=== PATIENT | female | born 1990 | race Caucasian/White ===

== ENCOUNTER 2021-02-01 10:49 | Emergency (ER) | payer OTHER, SELFPAY ==
[2021-02-01 10:58] VITALS: BP 126/69; PULSE 95; RESP 16; TEMP 36.6; O2SAT 99
--- NOTE | 2021-02-01 11:12 | ED.URI ---
HPI - URI/Sore Throat General Chief Complaint: Upper Respiratory Infection Stated Complaint: sore throat, cough Time Seen by Provider: 02/01/21 11:09 Source: patient Mode of arrival: ambulatory Limitations: no limitations History of Present Illness HPI Narrative: Sue is a 31-year-old female patient who ambulated into the [facility]. Patient states she has a week long history of a sore throat, lymph node swelling,. Patient states she just started with a cough in the last 2 days. Patient states she has had strep in the past but has not had it recently. Related Data Allergies Allergy/AdvReac Type Severity Reaction Status Date / Time Penicillins Allergy Anaphylaxis Verified 02/01/21 11:13 hydrocodone AdvReac Nausea and Verified 02/01/21 11:13 Vomiting Review of Systems Review of Systems: CONSTITUTIONAL: Denies body aches, fever, chills, or sweats. EYES: Denies visual changes, redness, or discharge. ENT: Denies rhinorrhea, congestion, +sore throat, denies otalgia. CARDIOVASCULAR: Denies chest pain, palpitations, or edema. RESPIRATORY: +cough; denies dyspnea. GASTROINTESTINAL: Denies abdominal pain, nausea, vomiting, or diarrhea. GENITOURINARY: Denies dysuria or hematuria. SKIN: Denies rash, itching, or wounds. MUSCULOSKELETAL: Denies back pain, joint pain, or myalgia. NEUROLOGIC: Denies headache, numbness, tingling, or weakness. PSYCH: Denies depression or anxiety. All systems reviewed & are unremarkable except as noted in HPI and below PMFSH Comments At time of signature, I have reviewed and agree with nursing past medical, surgical, social and family history unless otherwise noted. Please see nursing chart for further information. There is no relevant family history pertinent to the presenting complaint Exam Narrative: GENERAL: Well-appearing, well-nourished, and in no acute distress. HEAD: Normocephalic, atraumatic. EYES: EOMI. No redness or drainage. Conjunctivae normal. ENT: Mucous membranes pink and moist. Nares clear. No rhinorrhea. TMs normal bilaterally. Posterior pharynx is erythemic with 4+ tonsils. No exudate is noted Uvula midline. NECK: Normal AROM. Supple. Bilateral anterior cervical lymphadenopathy. CHEST: No respiratory distress. Clear to auscultation. MUSCULOSKELETAL: No bony tenderness. EXTREMITIES: Normal range of motion. No edema. SKIN: Warm, dry, no rash. Capillary refill normal. Normal skin turgor. NEURO: No focal deficits. Alert and oriented x3. Gait steady. PSYCH: Normal affect. No signs of depression or anxiety. Course Vital Signs Vital signs: Vital Signs Temperature 36.6 C 02/01/21 10:58 Pulse Rate 95 02/01/21 10:58 Respiratory Rate 16 02/01/21 10:58 Blood Pressure 126/69 02/01/21 10:58 Pulse Oximetry 99 02/01/21 10:58 Temperature 36.6 C 02/01/21 10:58 Pulse Rate 95 02/01/21 10:58 Respiratory Rate 16 02/01/21 10:58 Blood Pressure 126/69 02/01/21 10:58 Pulse Oximetry 99 02/01/21 10:58 MDM - URI/Sore Throat MDM Narrative Medical decision making narrative: Rapid strep test is negative. Throat culture will be sent to lab. Patient will be treated with with prednisone. Patient follow her primary care physician in 3 to 5 days. Differential Diagnosis Differential diagnosis: Likely upper respiratory infection, otitis media, viral infection and pharyngitis Critical Care Time Critical Care Time Critical Care Time: No Discharge Plan Discharge Clinical Impression: Pharyngitis Qualifiers: Pharyngitis/tonsillitis etiology: unspecified etiology Qualified Code(s): J02.9 - Acute pharyngitis, unspecified Patient Disposition: Home, Self-Care Condition: Stable Instructions: Antibiotic Form, Pharyngitis (ED) Additional Instructions: Increase fluids. Use [id number] cough and cold medicines for fever, cough, and sore throat. Your rapid strep swab was negative today at [facility]. You will be notified in a few days
== END 2021-02-01 11:21 | disposition home or self-care (01) ==
PROVIDERS: Emergency Provider Nurse Practitioner Family
DX: J02.9 Acute pharyngitis, unspecified (principal)
CPT/HCPCS: 87081; 87880; 99203; G0463

== ENCOUNTER 2023-01-10 02:01 | Day surgery (SDC) | payer BC, SELFPAY ==
[2023-01-03 10:02] VITALS: BMI 31.7
--- NOTE | 2023-01-07 09:25 | SUR.PREOP ---
Patient called regarding upcoming procedure. Message left on patient's voicemail regarding preop instructions, appointment times, and procedure prep.
--- NOTE | 2023-01-07 14:57 | PM.HPGS ---
History of Present Illness History of Present Illness Consent: Risks, benefits, and alternatives have been discussed and questions answered. Patient agrees to proceed with procedure. Chief complaint: FA Hx of colon CA Narrative: Sue Lewis is a 32 year old female Referred for colonoscopy due to family history of colon cancer. Review of Systems Review of Systems: All systems reviewed & are unremarkable except as noted in HPI and below PMFSH Social History Social History Smoking status: Never smoker Alcohol intake: current Alcohol use details: Rarely Substance use type: does not use Meds Home Medications and Allergies Home Medications Medication Instructions Recorded Confirmed Type levonorgestrel-ethinyl estradiol 1 tablet PO DAILY 01/03/23 01/10/23 History 0.1 mg-20 mcg tablet (Falmina (28)) Allergies Allergy/AdvReac Type Severity Reaction Status Date / Time Penicillins Allergy Anaphylaxis Verified 01/10/23 11:05 hydrocodone AdvReac Nausea and Verified 01/10/23 11:05 Vomiting Exam Const: General: alert Orientation/consciousness: patient oriented x3 Resp: Auscultation: clear to auscultation bilaterally Cardio: Rhythm: regular rhythm GI: GI Palp: Yes Soft to palpation and No Tenderness to palpation present (GI) Neuro: General: patient oriented x3 Assessment and Plan Assessment and plan (1) Colon cancer screening: Code(s): Z12.11 - Encounter for screening for malignant neoplasm of colon Status: Acute Assessment and Plan: Colonoscopy with possible biopsy or polypectomy or cautery or injection of substances.
[2023-01-10 11:07] VITALS: BP 146/99; PULSE 99; RESP 16; TEMP 35.8; O2SAT 100
[2023-01-10] MEDS: LACTATED RINGERS 1,000 ML 150 ML IV CONT (11:16)
--- NOTE | 2023-01-10 11:27 | WPDANESEPPF ---
Anes - Initial Pre Proc Eval Procedure: Operation Date: 01/10/23 12:30 Proposed Procedures p Screening Colonoscopy - Zachery Funez MD Date/Time: 01/10/23 11:27 Surgeon: Zachery Funez MD Pre Op Diagnosis: FA Hx of colon CA Patient Data Age: 32 Gender: F Height: 1.65 m Weight: 90.3 kg Last Vital Signs Temp 96.5 F L 01/10/23 11:07 Pulse 99 01/10/23 11:07 Resp 16 01/10/23 11:07 BP 146/99 H 01/10/23 11:07 Pulse Ox 100 01/10/23 11:07 O2 Del Method Room Air 01/10/23 11:07 Allergies Allergy/AdvReac Type Severity Reaction Status Date / Time Penicillins Allergy Anaphylaxis Verified 01/10/23 11:05 hydrocodone AdvReac Nausea and Verified 01/10/23 11:05 Vomiting Home Medications Medication Instructions Recorded Confirmed Type levonorgestrel-ethinyl estradiol 1 tablet PO DAILY 01/03/23 01/10/23 History 0.1 mg-20 mcg tablet (Falmina (28)) Patient hx anesthesia problems: none Family hx anesthesia problems: none Results Review: All pre-operative results and documents have been reviewed as part of the pre-operative evaluation. [facility] Social History Social History Smoking status: Never smoker Alcohol intake: current Alcohol use details: Rarely Substance use type: does not use Anes - Eval Final PreProcedure Day of Procedure 01/10/23 11:27 Patient weight: obese Heart: regular rate and rhythm Lungs: clear to auscultation Airway: Mallampati scale class II Neurological: alert and oriented Last oral intake: >/= 8 hours ASA classification: II Emergent: no Anesthetic plan: proceed Anesthesia type and monitoring: general GIVS and standard monitoring Results Review: All pre-operative results and documents have been reviewed as part of the pre-operative evaluation. Informed Consent: The patient's anesthetic plan and its attendant risks and benefits were discussed with the patient/family/POA. Questions were solicited and answers provided to the satisfaction of the patient/family/POA.
[2023-01-10 12:18] VITALS: BP 111/76; PULSE 80; RESP 20; O2SAT 99
[2023-01-10 12:28] VITALS: BP 117/78; PULSE 75; RESP 19; O2SAT 99
[2023-01-10 12:38] VITALS: BP 113/73; PULSE 71; RESP 17; O2SAT 99
== END 2023-01-10 12:49 | disposition home or self-care (01) ==
PROVIDERS: PCP Nurse Practitioner Family; Visit Provider Internal Medicine Gastroenterology
PROC: 0DJD8ZZ Inspection of Lower Intestinal Tract, Via Natural or Artificial Opening Endoscopic (ICD-10-PCS; CPT 45378; principal; 2023-01-10 12:30)
DX: Z12.11 Encounter for screening for malignant neoplasm of colon (principal); Z80.0 Family history of malignant neoplasm of digestive organs
CPT/HCPCS: 45378; J2704; J7120

== ENCOUNTER 2024-06-12 11:08 | Outpatient (CLI) | payer BC, SELFPAY ==
[2024-06-12 11:40] VITALS: BP 133/99; PULSE 92
[2024-06-12 11:46] VITALS: BP 130/71; PULSE 88
[2024-06-12 11:49] LABS: Basophils Percent Auto 0.1 % (0.2-1.2); Eosinophils Percent Auto 0.4 % (0-4.4); Hematocrit 31.1 % (37.0-47.0); Hemoglobin 10.2 g/dL (12.0-15.0); Immature Granulocyte Absolute 0.02 K/mm3 (0.00-0.031); Immature Granulocyte Percent A 0.3 % (0-0.5); Lymphocytes Absolute Auto 1.43 K/mm3 (0.9-3.2); Lymphocytes Percent Auto 18.5 % (18.3-44.2); Mean Corpuscular HGB Conc 32.8 g/dl (32-36); Mean Corpuscular Hemoglobin 26.9 pg (26-34); Mean Corpuscular Volume 82.1 fl (80-100); Mean Platelet Volume 9.6 fl (7.4-10.4); Monocytes Absolute Auto 0.5 K/mm3 (0.1-0.6); Monocytes Percent Auto 6.5 % (2.6-8.5); Neutrophils Absolute Auto 5.7 K/mm3 (1.3-6.7); Neutrophils Percent Auto 74.2 % (45.5-73.1); Platelet Count Result 213 k/mm3 (150-375); Red Blood Count 3.79 M/mm3 (4.2-5.4); Red Cell Distribution Width 14.8 % (11.5-14.5); White Blood Count 7.7 K/mm3 (4.5-10.0)
[2024-06-12 11:53] VITALS: BMI 32.6
[2024-06-12 12:00] VITALS: BP 134/86; PULSE 79
[2024-06-12 12:03] LABS: Add Urine Microscopic? YES; Appearance Urine Clear (Clear); Bacteria Urine None Seen /hpf; Bilirubin Urine Negative (Negative); Blood Urine Negative (Negative); Color Urine Yellow (Yellow); Glucose Urine UA Negative (Negative); Ketones Urine Negative (Negative); Leukocyte Esterase Ur Trace LEU/UL (Negative); Nitrate Urine Negative (Negative); Non Pathogenic Casts 0-2; Protein Urine Negative (Negative); RBC Urine 0-2 /hpf (0-2); Specific Grav Ur 1.009 (1.001-1.035); Squamous Epithelial Cell Urine Occasional /hpf (Few); Urobilinogen Urine 0.2 mg/dL (<2.0); WBC Urine 0-5 /hpf (0-3); pH Urine 7.5 (5.0-9.0)
[2024-06-12 12:05] LABS: Alanine Aminotransferase 18 U/L (6-35); Albumin Level 3.6 g/dL (3.5-5.1); Alkaline Phosphatase 162 U/L (38-126); Anion Gap 8 mmol/L (4-12); Aspartate Amino Transferase 25 U/L (14-36); Bilirubin,Total 0.4 mg/dL (0.2-1.3); Blood Urea Nitrogen 6 mg/dL (7-17); Calcium 9.9 mg/dL (8.4-10.2); Carbon Dioxide 21 mmol/L (22-30); Chloride 107 mmol/L (98-107); Estimated CRCL calculation 127 ml/min; Estimated Glomerular Filt Rate > 60; Glucose 119 mg/dL (65-110); Potassium 2.9 mmol/L (3.4-5.0); Sodium 136 mmol/L (137-145)
[2024-06-12 12:07] LABS: Creatinine Urine 66.3 mg/dL; Total Protein Urine Random 27 mg/dL; Ur Ttl Prot Creatinine Ratio 0.41 mg/mg (0-0.20)
[2024-06-12 12:16] VITALS: BP 129/81; PULSE 88
[2024-06-12] MEDS: POTASSIUM CHLORIDE 20 MEQ ER TABLET 40 MEQ PO (12:59)
[2024-06-12 13:02] VITALS: BP 133/99; PULSE 92
== END 2024-06-12 13:02 | disposition home or self-care (01) ==
LOC: ANHOBOP 11:14 → ANHLDR 11:16
PROVIDERS: PCP Advanced Practice Midwife; Visit Provider Advanced Practice Midwife
DX: O13.9 Gestational [pregnancy-induced] hypertension without significant proteinuria, unspecified trimester (principal); Z3A.00 Weeks of gestation of pregnancy not specified
CPT/HCPCS: 36415; 59025; 80053; 81001; 82570; 84156; 84550; 85025; 99199; A9270

== ENCOUNTER 2024-06-18 13:55 | Outpatient (RCR) | payer BC, SELFPAY ==
[2024-06-15 14:10] VITALS: BP 136/82
[2024-06-18 14:43] LABS: Basophils Percent Auto 0.1 % (0.2-1.2); Eosinophils Percent Auto 0.4 % (0-4.4); Hematocrit 30.6 % (37.0-47.0); Hemoglobin 9.8 g/dL (12.0-15.0); Immature Granulocyte Absolute 0.03 K/mm3 (0.00-0.031); Immature Granulocyte Percent A 0.4 % (0-0.5); Lymphocytes Absolute Auto 1.38 K/mm3 (0.9-3.2); Lymphocytes Percent Auto 17.9 % (18.3-44.2); Mean Corpuscular Hemoglobin 26.7 pg (26-34); Mean Corpuscular Volume 83.4 fl (80-100); Mean Platelet Volume 9.3 fl (7.4-10.4); Monocytes Absolute Auto 0.5 K/mm3 (0.1-0.6); Monocytes Percent Auto 6.4 % (2.6-8.5); Neutrophils Absolute Auto 5.8 K/mm3 (1.3-6.7); Neutrophils Percent Auto 74.8 % (45.5-73.1); Platelet Count Result 206 k/mm3 (150-375); Red Blood Count 3.67 M/mm3 (4.2-5.4); Red Cell Distribution Width 15.1 % (11.5-14.5); White Blood Count 7.7 K/mm3 (4.5-10.0)
[2024-06-18 14:45] LABS: Add Urine Microscopic? NO; Appearance Urine Clear (Clear); Bilirubin Urine Negative (Negative); Blood Urine Negative (Negative); Color Urine Yellow (Yellow); Glucose Urine UA Negative (Negative); Ketones Urine Negative (Negative); Leukocyte Esterase Ur Negative LEU/UL (Negative); Nitrate Urine Negative (Negative); Protein Urine Negative (Negative); Urobilinogen Urine 0.2 mg/dL (<2.0)
[2024-06-18 15:04] LABS: Alanine Aminotransferase 18 U/L (6-35); Albumin Level 3.4 g/dL (3.5-5.1); Alkaline Phosphatase 170 U/L (38-126); Anion Gap 8 mmol/L (4-12); Aspartate Amino Transferase 31 U/L (14-36); Bilirubin,Total 0.4 mg/dL (0.2-1.3); Blood Urea Nitrogen 4 mg/dL (7-17); Calcium 8.8 mg/dL (8.4-10.2); Carbon Dioxide 20 mmol/L (22-30); Chloride 108 mmol/L (98-107); Estimated Glomerular Filt Rate > 60; Glucose 98 mg/dL (65-110); Potassium 3.2 mmol/L (3.4-5.0); Sodium 136 mmol/L (137-145)
[2024-06-18 15:25] LABS: Creatinine Urine 68.8 mg/dL; Total Protein Urine Random 20 mg/dL; Ur Ttl Prot Creatinine Ratio 0.29 mg/mg (0-0.20)
== END 2024-07-02 08:34 | disposition home or self-care (01) ==
LOC: ANHOBOP 13:55
PROVIDERS: PCP Advanced Practice Midwife; Visit Provider Advanced Practice Midwife
DX: O16.9 Unspecified maternal hypertension, unspecified trimester (principal); Z3A.00 Weeks of gestation of pregnancy not specified
CPT/HCPCS: 36415; 59025; 80053; 81003; 82570; 84156; 84550; 85025

== ENCOUNTER 2024-06-19 16:04 | Inpatient (IN) | payer BC, SELFPAY ==
[2024-06-19] VITALS (15 sets, daily range): BP systolic 129–152; BP diastolic 77–111; PULSE 71–92; BMI 32.6
--- NOTE | 2024-06-19 17:17 | LDADM ---
This patient, Sue Rose, was admitted to Labor/Delivery/Recovery 106 on 06/19/24 at 16:04. Plans for labor, pain management and were discussed with patient. Patient/family oriented to hospital policies and general routines including ID bracelet, bed and alarms, visiting hours, pain management, procedures, bathroom and other care routines, personal items, smoking policy, room service/diet and guest tray routines, security routines, and visiting hours. Patient/Family are encouraged to report perceived risks to care and to ask questions if they do not understand what they are told or what they should do. See OBIX for further documentation.
[2024-06-19] MEDS: miSOPROStol 25 MCG TABLET 50 MCG VAGINAL ×2 (17:50→21:36)
[2024-06-19 18:06] LABS: Basophils Percent Auto 0.2 % (0.2-1.2); Eosinophils Percent Auto 0.4 % (0-4.4); Hematocrit 30.5 % (37.0-47.0); Immature Granulocyte Absolute 0.04 K/mm3 (0.00-0.031); Immature Granulocyte Percent A 0.4 % (0-0.5); Lymphocytes Absolute Auto 1.78 K/mm3 (0.9-3.2); Mean Corpuscular HGB Conc 32.8 g/dl (32-36); Mean Corpuscular Hemoglobin 27.2 pg (26-34); Mean Corpuscular Volume 83.1 fl (80-100); Mean Platelet Volume 10.1 fl (7.4-10.4); Monocytes Absolute Auto 0.6 K/mm3 (0.1-0.6); Monocytes Percent Auto 7.2 % (2.6-8.5); Neutrophils Absolute Auto 6.4 K/mm3 (1.3-6.7); Neutrophils Percent Auto 71.8 % (45.5-73.1); Platelet Count Result 244 k/mm3 (150-375); Red Blood Count 3.67 M/mm3 (4.2-5.4); Red Cell Distribution Width 15.1 % (11.5-14.5); White Blood Count 8.9 K/mm3 (4.5-10.0)
[2024-06-19 19:35] LABS: Syphilis IgG/IgM Antibody Negative (Negative)
--- NOTE | 2024-06-19 20:53 | P.PNAN_ITS ---
Anes - Eval Pre Procedure Procedure: labor epidural Date/Time: 06/19/24 20:53 Surgeon: emmanuel Preop Diagnosis: pain during labor Pre Op Diagnosis: IOL Patient Data Age: 34 Gender: F Height: 1.65 m Weight: 89 kg Last Vital Signs Pulse 90 06/19/24 20:01 BP 152/101 H 06/19/24 20:01 O2 Del Method Room Air 06/19/24 17:34 Allergies Allergy/AdvReac Type Severity Reaction Status Date / Time Penicillins Allergy Anaphylaxis Verified 06/12/24 11:57 hydrocodone AdvReac Nausea and Verified 06/12/24 11:57 Vomiting Home Medications Medication Instructions Recorded Confirmed Type vit no.95-ferrous 1 tablet PO DAILY 06/04/24 06/12/24 History fumarate 28 mg-folic acid 800 mcg tablet () potassium chloride 20 mEq 20 meq PO DAILY #2 tabs 06/12/24 Rx tablet,extended release (K-Tab) Laboratory Tests 06/19/24 16:57 WBC 8.9 K/mm3 (4.5-10.0) RBC 3.67 L M/mm3 (4.2-5.4) Hgb 10.0 L g/dL (12.0-15.0) Hct 30.5 L % (37.0-47.0) MCV 83.1 fl (80-100) MCH 27.2 pg (26-34) MCHC 32.8 g/dl (32-36) RDW 15.1 H % (11.5-14.5) Plt Count 244 k/mm3 (150-375) MPV 10.1 fl (7.4-10.4) Immature Gran % (Auto) 0.4 % (0-0.5) Neut % (Auto) 71.8 % (45.5-73.1) Lymph % (Auto) 20.0 % (18.3-44.2) Smith % (Auto) 7.2 % (2.6-8.5) Eos % (Auto) 0.4 % (0-4.4) Baso % (Auto) 0.2 % (0.2-1.2) Lymph # (Auto) 1.78 K/mm3 (0.9-3.2) Smith # (Auto) 0.6 K/mm3 (0.1-0.6) Eos # (Auto) 0.0 K/mm3 (0-0.3) Baso # (Auto) 0.0 K/mm3 (0.0-0.1) Abs Immat Gran (auto) 0.04 H K/mm3 (0.00-0.031) Absolute Neuts (auto) 6.4 K/mm3 (1.3-6.7) Absolute Nucleated RBC 0.000 K/mm3 (0.0-0.012) Nucleated RBC % 0.0 % (0.0-0.2) Syphilis IgG/IgM Ab Negative (Negative) HIV 1&2 Ab/P24 Ag 4thGn Pending Blood Type A Positive Antibody Screen Negative Patient hx anesthesia problems: post op nausea/vomiting Family hx anesthesia problems: none Results Review: All pre-operative results and documents have been reviewed as part of the pre- operative evaluation. [facility] Past Medical History Medical History (Updated 06/19/24 @ 20:53 by [place] CRNA) IUP (intrauterine ), incidental PONV (postoperative nausea and vomiting) GERD (gastroesophageal reflux disease) Family History Family History (Updated 06/04/24 @ 14:33 by Katy Macdonald RN) Other Alzheimer dementia Colon cancer Social History Social History Smoking status: Never smoker Alcohol intake: current Alcohol use details: Rarely Substance use: never Substance use type: does not use Do You Feel Safe in your Home?: Yes Lack of Transportation: No Lack of Food: Never True Current Housing: I Have Housing Concerned About Future Housing: No Difficulty Paying Gas/Electric Bills: No Difficulty Paying for Meds: No Currently Unemployed: No Education: Bachelor's Degree Difficulty w/ Childcare or Family Care: No Spiritual care concerns: No Exam Day of Procedure 06/19/24 20:53
[2024-06-19] MEDS: ZOLPIDEM TARTRATE (*CRX) 5 MG TABLET PO (21:58)
[2024-06-20] VITALS (152 sets, daily range): BP systolic 100–155; BP diastolic 46–99; PULSE 25–146; RESP 18; TEMP 36.2–37.3; O2SAT 91–100
[2024-06-20 00:08] LABS: HIV 1/2 Ab P24 Ag Result Negative (Negative)
[2024-06-20] MEDS: miSOPROStol 25 MCG TABLET 50 MCG BUCCAL ×2 (01:36→05:40)
--- NOTE | 2024-06-20 07:35 | WPDOBADMIT ---
Obstetrics - Admit Note Admission Note: record reviewed. No pertinent additions to the history and/or any subsequent changes in the physical findings that are not consistent with the expected course of the were found. Additions to the history and/or subsequent changes in the physical findings follow. IOL, Preeclampsia, SVE /-2, will plan epidural and guaman catheter
[2024-06-20] MEDS: LACTATED RINGERS 1,000 ML 125 ML IV CONT ×2 (08:19→12:19)
--- NOTE | 2024-06-20 10:03 | PM.OBPNLAB ---
Pain Control Date/time seen: 06/20/24 10:03 Comments: pt comfortable with epidural 1-2/70/-2 attempted guaman and SROM, clear fluid
[2024-06-20] MEDS: SODIUM CHLORIDE 0.9% IV 300 ML 600 ML I-UTERINE (10:19)
[2024-06-20] MEDS: ONDANSETRON INJ 4 MG/2 ML VIAL IV PUSH ×2 (10:25→12:33)
[2024-06-20] MEDS: OXYTOCIN 30 UNITS/NS 500 ML 30 UNITS/500 ML BAG IV CONT (10:48)
[2024-06-20] MEDS: FAMOTIDINE 20 MG/2 ML VIAL IV PUSH (11:51)
--- NOTE | 2024-06-20 16:53 | P.PCNOB_ITS ---
OB - Vaginal Delivery Note Procedure Delivery date: 06/20/24 Events: Gestational Hypertension Intrapartal Events: Ineffetive Pushing/Maternal Exhaustion Induction method: AROM, Per Misoprostol Protocol and Per Pitocin Protocol Delivery augmentation: Rupture of Membranes Delivery monitor: External FHT and Internal Uterine Route of delivery: Episiotomy description: None Laceration Description: Superficial Delivery repair: vicryl Specimen: No Quantitative Blood Loss (ml): 100 Anesthesia type: Epidural Disposition: Floor Complications: No immediate complications [place] Baby Date of : 06/20/24 Time of : 16:33 Gestational Age by Date: 38 gender: Male presentation: vertex position: Right Occiput Anterior Placenta delivery description: Spontaneous Cord Vessel Description: 3 Vessels, Nuchal Cord (x1) and Clamped/Cut
[2024-06-20] MEDS: METOCLOPRAMIDE HCL INJ 10 MG/2 ML VIAL IV PUSH (17:05)
[2024-06-20] MEDS: ACETAMINOPHEN 325 MG TABLET 650 MG PO ×2 (17:13→23:40)
[2024-06-20] MEDS: OXYTOCIN 30 UNITS/NS 500 ML 30 UNITS/500 ML BAG 125 UNITS IV CONT (17:15)
[2024-06-20] MEDS: IBUPROFEN 600 MG TABLET PO ×2 (18:25→23:40)
--- NOTE | 2024-06-20 19:19 | OBPPTRN ---
Patient transferred to post room #284 via wheelchair. Support person- spouse JOSE present. Oriented to unit, room, information board, rooming in, admission packet and security measures. Patient verbalizes understanding.
--- NOTE | 2024-06-20 20:20 | PC.NURSE ---
Initiated pumping with pt due to infant level 2 nursery- education given on cleaning of pump parts, frequency of pumping, flange fit, etc. Pt verbalized understanding at this time. Pumped drops from one breast and offered to feed to infant in nursery when its time with a gloved finger and pt declined. Pump parts cleaned and set to dry at this time.
[2024-06-21 04:00] VITALS: BP 112/72; PULSE 69; RESP 18; TEMP 36.3; O2SAT 99
[2024-06-21 04:20] LABS: Hematocrit 29.2 % (37.0-47.0); Hemoglobin 9.5 g/dL (12.0-15.0)
[2024-06-21 06:40] VITALS: BP 122/90; PULSE 74; RESP 18; TEMP 36.6; O2SAT 99
[2024-06-21] MEDS: IBUPROFEN 600 MG TABLET PO ×2 (07:05→18:37)
[2024-06-21] MEDS: ACETAMINOPHEN 325 MG TABLET 650 MG PO ×3 (07:05→20:20)
--- NOTE | 2024-06-21 08:04 | P.PNOB_ITS ---
OB - PN: Subj Subjective Date/time seen: 06/21/24 08:04 Interval history: pp day 1 doing well tired plan to rest OB - PN: Obj Data Labs 06/21/24 04:02 Labs: Laboratory Results - last 24 hr 06/21/24 04:02 Hgb 9.5 L Hct 29.2 L OB - PN A/P Plan day: 1 Plan: routine care Time Spent With Patient Time: Total time spent is greater than 50% in coordination of care (as documented) at patient's floor/unit and/or counseling patient: Review of Systems 2 Review of Systems: All systems reviewed & are unremarkable except as noted in HPI and below Exam 2 Const: General: cooperative, healthy appearing and comfortable
[2024-06-21] MEDS: MULTIVIT/MIN/PREN/FOL AC/IRON TABLET 1 TAB PO (10:00)
[2024-06-21] MEDS: POLYSACCHARIDE IRON COMPLEX 150 MG CAPSULE PO ×2 (10:01→16:45)
[2024-06-21] MEDS: DOCUSATE SODIUM 100 MG CAPSULE (10:01)
--- NOTE | 2024-06-21 10:26 | PC.NURSE ---
Introductions were made. Consulted with patient to assess needs related to . Mother has been giving infant formula since but states that she would like to pump eventually . Educated patient on importance of pumping ever 3 hours to protect her milk supply. Mother states that she will shower and eat before pumping. Breast pump is at bedside and patient will call this RN for assistance if needed. RN updated.
[2024-06-21 11:58] VITALS: BP 132/78; PULSE 85; RESP 18; TEMP 36.3; O2SAT 98
--- NOTE | 2024-06-21 13:51 | WPDANLDPN2 ---
Anes-Prog Note L&D Date/Time: 06/21/24 13:51 Comfortable throughout: labor and delivery Neuraxial method: epidural Epidural/Spinal procedure site: clean & non-tender Neuro status: Neuro function grossly intact. Cardiovascular status: normal Respiratory status: normal Airway patency: baseline Mental status: baseline Post-Op hydration status: normal Vital Signs: Last Vital Signs Temp 36.3 C L 06/21/24 11:58 Pulse 85 06/21/24 11:58 Resp 18 06/21/24 11:58 BP 132/78 06/21/24 11:58 Pulse Ox 98 06/21/24 11:58 O2 Del Method Room Air 06/19/24 17:34 Pain score (VAS): 0/10 I/O: Intake & Output 06/20/24 06/21/24 06/21/24 23:59 07:59 15:59 Intake Total 980 240 Output Total 1500 Balance -520 240 Post-procedural complaints: none Patient feedback: Patient satisfied with anesthetic care. Patients states nausea and vomiting yesterday but has resolved.
[2024-06-21 16:45] VITALS: BP 135/93; PULSE 74; RESP 20
[2024-06-21] MEDS: DOCUSATE SODIUM 100 MG CAPSULE PO (16:45)
[2024-06-21 18:43] VITALS: BP 131/65; PULSE 96; RESP 18; TEMP 36.5; O2SAT 99
[2024-06-22] VITALS: BP 138/81; PULSE 77; RESP 18; TEMP 36.1; O2SAT 96
[2024-06-22] MEDS: IBUPROFEN 600 MG TABLET PO ×2 (00:08→07:36)
[2024-06-22 05:07] VITALS: BP 104/70; PULSE 73; RESP 16; TEMP 36.4; O2SAT 98
--- NOTE | 2024-06-22 07:26 | P.PNOB_ITS ---
OB - PN: Subj Subjective Date/time seen: 06/22/24 07:26 Interval history: pp day 2 doing well, tired plan to rest during day d/c this afternoon/evening OB - PN: Obj Data Labs 06/21/24 04:02 OB - PN A/P Plan day: 2 Plan: routine care and discharge home Time Spent With Patient Time: Total time spent is greater than 50% in coordination of care (as documented) at patient's floor/unit and/or counseling patient: Review of Systems 2 Review of Systems: All systems reviewed & are unremarkable except as noted in HPI and below Exam 2 Const: General: cooperative and healthy appearing Resp: Effort & Inspection: normal respiratory effort Cardio: Rate: regular rate
--- NOTE | 2024-06-22 07:28 | P.DS_ITS ---
DS: Admitting Diagnosis Discharge Date 06/22/24 Admitting Diagnosis gestational hypertension, IOL DS: Discharge Diagnosis Discharge Diagnosis (1) Vaginal delivery: Code(s): O80 - Encounter for full-term uncomplicated delivery Status: Acute OB - DS: Summary OB Procedures : None OB Procedures Intrapartum: Spontaneous Vag Delivery OB Procedures: : None Peripartum Data Laceration Description: Superficial Episiotomy description: None Time Spent with Patient Time attestation: Total time spent providing and/or coordinating discharge services: Discharge Plan Discharge Attending physician on discharge: Jr Reynolds Discharging Clinician: Rena Garcia Patient Disposition: Home Activity: pelvic rest Diet: regular Patient Instructions: Antibiotic Form Patient Language: Citizen Of [place] Stand Alone Forms: General Discharge Information Follow-up/Referrals: Rena Garcia CNM [Primary Care Provider] - 4 Weeks Discharge Medications: Continued PNV cmb#95-ferrous fumarate-FA [] 28 mg iron- 800 mcg tablet 1 tablet PO DAILY Discontinued potassium chloride [K-Tab] 20 mEq tablet extended release 20 meq PO DAILY Qty: 2 0RF Date of admission: 06/19/24 16:04 Primary Care Provider: Rena Garcia Admitting Provider: Jr Reynolds Attending physician on admission: Jr Reynolds Condition: Stable
[2024-06-22 07:35] VITALS: BP 126/85; PULSE 75; RESP 18; TEMP 36.6; O2SAT 99
[2024-06-22] MEDS: POLYSACCHARIDE IRON COMPLEX 150 MG CAPSULE PO (07:36)
[2024-06-22] MEDS: MULTIVIT/MIN/PREN/FOL AC/IRON TABLET 1 TAB PO (07:36)
[2024-06-22] MEDS: ACETAMINOPHEN 325 MG TABLET 650 MG PO (07:36)
[2024-06-22] MEDS: DOCUSATE SODIUM 100 MG CAPSULE PO (07:36)
--- NOTE | 2024-06-22 11:23 | PC.NURSE ---
06/22. Mom continues to pump and bottle feed . Mom reports no pain with pumping, and plans to continue to pump and bottle feed and reports she has her own pump at home to use. Reviewed standard discharge information with patient including monitoring for required output, transition of stools, feeding 8-12 times every 24 hours, milk production, and follow up at [facility] and with periodontist in the first week of life. Parents are encouraged to take the feeding log and continue to track feedings and output for the first week . Offered outpatient resources with [facility] referral and Services at [facility]. Patient has the Mom/Baby Guide for further education and reference for common concerns, phone numbers, and guidance on when to call the doctor. A feeding plan was added to the ’s discharge plan. Patient states that she has no further questions or concerns regarding .
[2024-06-23 08:42] VITALS: BP 135/88; PULSE 80; RESP 18; TEMP 36.5; O2SAT 100
== END 2024-06-22 14:00 | disposition home or self-care (01) | DRG 807 ==
LOC: ANHLDR 16:17 → ANHOB2 06-20 20:59
PROVIDERS: Admitting Provider Obstetrics & Gynecology; PCP Advanced Practice Midwife; Visit Provider Obstetrics & Gynecology
DX: O13.4 Gestational [pregnancy-induced] hypertension without significant proteinuria, complicating childbirth (principal); Z37.0 Single live birth; O69.81X0 Labor and delivery complicated by cord around neck, without compression, not applicable or unspecified; O63.1 Prolonged second stage (of labor); O70.0 First degree perineal laceration during delivery; Z3A.38 38 weeks gestation of pregnancy
CPT/HCPCS: 36415; 85014; 85018; 85025; 86593; 86703; 86850; 86900; 86901; A9270; G0432; J2405; J2590; J2765; J2795; J7030; J7120

== ENCOUNTER 2024-06-26 14:19 | Observation (INO) | payer BC, SELFPAY ==
[2024-06-26] VITALS (50 sets, daily range): BP systolic 119–172; BP diastolic 68–102; PULSE 60–82; RESP 16–18; TEMP 36.2–36.8; O2SAT 93–100; BMI 32.1
[2024-06-26 14:11] LABS: Basophils Percent Auto 0.4 % (0.2-1.2); Eosinophils Absolute Auto 0.1 K/mm3 (0-0.3); Eosinophils Percent Auto 1.6 % (0-4.4); Hematocrit 30.7 % (37.0-47.0); Hemoglobin 9.9 g/dL (12.0-15.0); Immature Granulocyte Absolute 0.03 K/mm3 (0.00-0.031); Immature Granulocyte Percent A 0.4 % (0-0.5); Lymphocytes Absolute Auto 1.76 K/mm3 (0.9-3.2); Lymphocytes Percent Auto 22.1 % (18.3-44.2); Mean Corpuscular HGB Conc 32.2 g/dl (32-36); Mean Corpuscular Hemoglobin 26.8 pg (26-34); Mean Platelet Volume 8.8 fl (7.4-10.4); Monocytes Absolute Auto 0.6 K/mm3 (0.1-0.6); Monocytes Percent Auto 7.2 % (2.6-8.5); Neutrophils Absolute Auto 5.4 K/mm3 (1.3-6.7); Neutrophils Percent Auto 68.3 % (45.5-73.1); Platelet Count Result 259 k/mm3 (150-375); Red Cell Distribution Width 14.6 % (11.5-14.5)
[2024-06-26 14:21] LABS: Alanine Aminotransferase 25 U/L (6-35); Albumin Level 3.8 g/dL (3.5-5.1); Alkaline Phosphatase 110 U/L (38-126); Anion Gap 10 mmol/L (4-12); Aspartate Amino Transferase 39 U/L (14-36); Bilirubin,Total 0.3 mg/dL (0.2-1.3); Blood Urea Nitrogen 12 mg/dL (7-17); Calcium 9.3 mg/dL (8.4-10.2); Carbon Dioxide 23 mmol/L (22-30); Chloride 107 mmol/L (98-107); Estimated Glomerular Filt Rate > 60; Glucose 78 mg/dL (65-110); Potassium 3.1 mmol/L (3.4-5.0); Sodium 140 mmol/L (137-145); Uric Acid 4.4 mg/dL (2.5-7.5)
--- NOTE | 2024-06-26 14:43 | PM.IMHP ---
H&P: HPI History of Present Illness Date/Time: 06/26/24 14:43 Chief Complaint: pt admitted to labor and delivery after persistent headache that was not relieved with tylenol or ibuprofen. Bp severe range x 2, dr. benitez notified and orders reviewed. pt is now a who delivered 06/20/24. with gestational hypertension, normotensive blood pressures duringher course while in the hospital. Currently denies visual changes and epigastric pain Review of Systems Review of Systems: All systems reviewed & are unremarkable except as noted in HPI and below PMFSH Past Medical History Medical History (Updated 06/26/24 @ 14:49 by Rena Garcia CNM) IUP (intrauterine ), incidental PONV (postoperative nausea and vomiting) GERD (gastroesophageal reflux disease) Family History Family History (Updated 06/04/24 @ 14:33 by Katy Macdonald, ALBIN) Other Alzheimer dementia Colon cancer Social History Social History Smoking status: Never smoker Alcohol intake: current Alcohol use details: Rarely Substance use: never Substance use type: does not use Do You Feel Safe in your Home?: Yes Lack of Transportation: No Lack of Food: Never True Current Housing: I Have Housing Concerned About Future Housing: No Difficulty Paying Gas/Electric Bills: No Difficulty Paying for Meds: No Currently Unemployed: No Education: Bachelor's Degree Difficulty w/ Childcare or Family Care: No Spiritual care concerns: No Meds Home Medications and Allergies Home Medications ?Medication ?Instructions ?Recorded ?Confirmed ?Type vit no.95-ferrous 1 tablet PO DAILY 06/04/24 06/12/24 History fumarate 28 mg-folic acid 800 mcg tablet () Allergies Allergy/AdvReac Type Severity Reaction Status Date / Time Penicillins Allergy Anaphylaxis Verified 06/12/24 11:57 hydrocodone AdvReac Nausea and Verified 06/12/24 11:57 Vomiting Vital Signs Vital Signs - 24 hr 06/26/24 14:00 06/26/24 14:02 06/26/24 14:16 Pulse Rate 61 78 63 Blood Pressure 164/89 H 170/102 H 172/98 H Exam Const: General: cooperative and ill appearing Chest: Chest palpation & inspection: normal inspection of the chest Resp: Effort & Inspection: normal respiratory effort GI: Other: soft Back/Spine/Pelvis: Back: no CVA tenderness Skin: General skin exam: normal color Neuro: General: patient oriented x3 H&P: Results Labs Labs: Short CBC 06/26/24 Range/Units 13:58 WBC 8.0 (4.5-10.0) K/mm3 Hgb 9.9 L (12.0-15.0) g/dL Hct 30.7 L (37.0-47.0) % Plt Count 259 (150-375) k/mm3 BMP 06/26/24 13:58 Sodium 140 Potassium 3.1 L Chloride 107 Carbon Dioxide 23 BUN 12 D Creatinine 0.66 L Glucose 78 Calcium 9.3 Liver Function 06/26/24 Range/Units 13:58 Total Bilirubin 0.3 (0.2-1.3) mg/dL AST 39 H (14-36) U/L ALT 25 (6-35) U/L Alkaline Phosphatase 110 (38-126) U/L Albumin 3.8 (3.5-5.1) g/dL Assessment and Plan Assessment and plan (1) Pre-eclampsia, : Code(s): O14.95 - Unspecified pre-eclampsia, complicating the puerperium Status: Acute Plan preeclampsia plan magnesium sulfate start labetalol protocol dr. benitez co-managing
[2024-06-26] MEDS: LABETALOL HCL INJ 100 MG/20 ML VIAL 20 MG IV PUSH (14:45)
[2024-06-26] MEDS: LACTATED RINGERS 1,000 ML 75 ML IV CONT (14:47)
[2024-06-26] MEDS: ACETAMINOPHEN 500 MG TABLET 1000 MG PO ×2 (14:50→21:03)
[2024-06-26] MEDS: MAGNESIUM SULF 4 GM/WATER100ML 4 GM/100 ML BAG IVPB (14:50)
--- NOTE | 2024-06-26 15:11 | OBADM ---
This patient, Sue Rose, admitted to the OB room OB Post 117 for observation. Patient/family oriented to hospital policies and general routines including ID bracelet, bed and alarms, visiting hours, pain management, procedures, bathroom and other care routines, personal items, smoking policy, room service/diet, and visiting hours. Patient/Family are encouraged to report perceived risks to care and to ask questions if they do not understand what they are told or what they should do.
[2024-06-26] MEDS: MAGNESIUM SULF 20GM/WATER500ML 500 ML 50 MG IV CONT (15:25)
[2024-06-26] MEDS: IBUPROFEN 600 MG TABLET PO (17:39)
[2024-06-26] MEDS: POTASSIUM CHLORIDE 20 MEQ ER TABLET PO (18:58)
[2024-06-26] MEDS: LABETALOL HCL 100 MG TABLET 200 MG PO (18:58)
[2024-06-26 20:53] LABS: Basophils Percent Auto 0.3 % (0.2-1.2); Eosinophils Absolute Auto 0.1 K/mm3 (0-0.3); Hematocrit 32.9 % (37.0-47.0); Hemoglobin 10.6 g/dL (12.0-15.0); Immature Granulocyte Absolute 0.05 K/mm3 (0.00-0.031); Immature Granulocyte Percent A 0.5 % (0-0.5); Lymphocytes Absolute Auto 1.76 K/mm3 (0.9-3.2); Lymphocytes Percent Auto 18.1 % (18.3-44.2); Mean Corpuscular HGB Conc 32.2 g/dl (32-36); Mean Corpuscular Hemoglobin 26.7 pg (26-34); Mean Corpuscular Volume 82.9 fl (80-100); Monocytes Absolute Auto 0.6 K/mm3 (0.1-0.6); Monocytes Percent Auto 6.1 % (2.6-8.5); Neutrophils Absolute Auto 7.2 K/mm3 (1.3-6.7); Platelet Count Result 303 k/mm3 (150-375); Red Blood Count 3.97 M/mm3 (4.2-5.4); Red Cell Distribution Width 14.6 % (11.5-14.5); White Blood Count 9.8 K/mm3 (4.5-10.0)
[2024-06-26 21:03] LABS: Alanine Aminotransferase 27 U/L (6-35); Alkaline Phosphatase 122 U/L (38-126); Anion Gap 11 mmol/L (4-12); Aspartate Amino Transferase 38 U/L (14-36); Bilirubin,Total 0.3 mg/dL (0.2-1.3); Blood Urea Nitrogen 9 mg/dL (7-17); Calcium 8.3 mg/dL (8.4-10.2); Carbon Dioxide 24 mmol/L (22-30); Chloride 103 mmol/L (98-107); Estimated CRCL calculation 132 ml/min; Estimated Glomerular Filt Rate > 60; Glucose 113 mg/dL (65-110); Potassium 3.1 mmol/L (3.4-5.0); Sodium 138 mmol/L (137-145); Uric Acid 4.3 mg/dL (2.5-7.5)
[2024-06-27] VITALS (261 sets, daily range): BP systolic 119–150; BP diastolic 67–95; PULSE 60–173; RESP 14–16; TEMP 36.5–37.2; O2SAT 90–100
[2024-06-27] MEDS: MAGNESIUM SULF 20GM/WATER500ML 500 ML 50 MG IV CONT (01:52)
[2024-06-27] MEDS: IBUPROFEN 600 MG TABLET PO ×2 (02:05→09:10)
[2024-06-27] MEDS: LACTATED RINGERS 1,000 ML 75 ML IV CONT (04:05)
[2024-06-27] MEDS: ACETAMINOPHEN 500 MG TABLET 1000 MG PO ×2 (06:28→16:17)
[2024-06-27] MEDS: LABETALOL HCL 100 MG TABLET 200 MG PO (07:11)
--- NOTE | 2024-06-27 07:15 | PC.NURSE ---
Pan CHAVEZM in to see pt. Informed of last lab results and BP's this am. Pt given Tylenol this am for a headache which has decreased to a 1-2. Order received to repeat labs when Magnesium is turned off today.
--- NOTE | 2024-06-27 07:38 | P.PNOB_ITS ---
OB - PN: Subj Subjective Date/time seen: 06/27/24 07:38 Interval history: preeclampsia blood pressures normotensive on labetalol magnesium sulfate x 24 hours pt c/o mild tate and visual changes OB - PN: Obj Data Labs 06/26/24 20:12 06/26/24 20:12 Labs: Laboratory Results - last 24 hr 06/26/24 06/26/24 13:58 20:12 WBC 8.0 9.8 RBC 3.70 L 3.97 L Hgb 9.9 L 10.6 L Hct 30.7 L 32.9 L MCV 83.0 82.9 MCH 26.8 26.7 MCHC 32.2 32.2 RDW 14.6 H 14.6 H Plt Count 259 303 MPV 8.8 9.0 Immature Gran % (Auto) 0.4 0.5 Neut % (Auto) 68.3 74.0 H Lymph % (Auto) 22.1 18.1 L [place] % (Auto) 7.2 6.1 Eos % (Auto) 1.6 1.0 Baso % (Auto) 0.4 0.3 Lymph # (Auto) 1.76 1.76 [place] # (Auto) 0.6 0.6 Eos # (Auto) 0.1 0.1 Baso # (Auto) 0.0 0.0 Abs Immat Gran (auto) 0.03 0.05 H Absolute Neuts (auto) 5.4 7.2 H Absolute Nucleated RBC 0.000 0.000 Nucleated RBC % 0.0 0.0 Sodium 140 138 Potassium 3.1 L 3.1 L Chloride 107 103 Carbon Dioxide 23 24 Anion Gap 10 11 BUN 12 D 9 Creatinine 0.66 L 0.54 L Estim Creat Clear Calc Not Reportable 132 Estimated GFR > 60 > 60 Glucose 78 113 H Uric Acid 4.4 4.3 Calcium 9.3 8.3 L Total Bilirubin 0.3 0.3 AST 39 H 38 H ALT 25 27 Alkaline Phosphatase 110 122 Total Protein 7.0 7.0 Albumin 3.8 4.0 OB - PN A/P Assessment and Plan (1) Pre-eclampsia, : Code(s): O14.95 - Unspecified pre-eclampsia, complicating the puerperium Status: Acute (2) Hypokalemia: Code(s): E87.6 - Hypokalemia Status: Acute Plan preeclampsia continue magnesium sulfate x 24 hours hypokalemia, plan oral potassium x 3 days rpt labs at 24 hour felix co-managing with dr. [email or web address] Time Spent With Patient Time: Total time spent is greater than 50% in coordination of care (as documented) at patient's floor/unit and/or counseling patient: Review of Systems 2 Review of Systems: All systems reviewed & are unremarkable except as noted in HPI and below Exam 2 Const: General: cooperative and healthy appearing Neck: Neck: normal visual inspection Chest: Chest palpation & inspection: normal inspection of the chest Resp: Effort & Inspection: normal respiratory effort and able to speak in complete sentences Cardio: Rate: regular rate GI: Other: soft : Other: voiding without difficulty
[2024-06-27] MEDS: POTASSIUM CHLORIDE 20 MEQ ER TABLET PO (09:11)
--- NOTE | 2024-06-27 09:32 | PC.NURSE ---
Pan CHAVEZM informed of increased weakness when I assisted pt up to the bathroom. Informed O2 sats are better now, BP's stable, and DTR's 1+ and no clonus. Order received to decrease Magnesium sulfate to 1 gm/hr.
[2024-06-27 15:21] LABS: Basophils Percent Auto 0.3 % (0.2-1.2); Eosinophils Percent Auto 0.4 % (0-4.4); Hematocrit 34.7 % (37.0-47.0); Hemoglobin 10.8 g/dL (12.0-15.0); Immature Granulocyte Absolute 0.03 K/mm3 (0.00-0.031); Immature Granulocyte Percent A 0.4 % (0-0.5); Lymphocytes Percent Auto 14.3 % (18.3-44.2); Mean Corpuscular HGB Conc 31.1 g/dl (32-36); Mean Corpuscular Hemoglobin 26.2 pg (26-34); Mean Corpuscular Volume 84.2 fl (80-100); Mean Platelet Volume 9.1 fl (7.4-10.4); Monocytes Absolute Auto 0.4 K/mm3 (0.1-0.6); Monocytes Percent Auto 4.9 % (2.6-8.5); Neutrophils Absolute Auto 6.1 K/mm3 (1.3-6.7); Neutrophils Percent Auto 79.7 % (45.5-73.1); Platelet Count Result 318 k/mm3 (150-375); Red Blood Count 4.12 M/mm3 (4.2-5.4); Red Cell Distribution Width 14.6 % (11.5-14.5); White Blood Count 7.7 K/mm3 (4.5-10.0)
[2024-06-27 15:34] LABS: Alanine Aminotransferase 25 U/L (6-35); Alkaline Phosphatase 125 U/L (38-126); Anion Gap 9 mmol/L (4-12); Aspartate Amino Transferase 37 U/L (14-36); Bilirubin,Total 0.3 mg/dL (0.2-1.3); Blood Urea Nitrogen 5 mg/dL (7-17); Calcium 6.6 mg/dL (8.4-10.2); Carbon Dioxide 28 mmol/L (22-30); Chloride 103 mmol/L (98-107); Estimated CRCL calculation 125 ml/min; Estimated Glomerular Filt Rate > 60; Glucose 98 mg/dL (65-110); Potassium 3.6 mmol/L (3.4-5.0); Sodium 140 mmol/L (137-145); Uric Acid 3.9 mg/dL (2.5-7.5)
--- NOTE | 2024-06-27 16:56 | PC.NURSE ---
Elisabeth Garcia CNM to discuss BP's.
--- NOTE | 2024-06-27 17:24 | PC.NURSE ---
Pan Garcia CNM returned page, but I was occupied in another room.
--- NOTE | 2024-06-27 17:33 | PC.NURSE ---
Pan CHAVEZM informed of increase in BP's since Magnesium sulfate was discontinued. Informed pt is due for her next dose of Labetalol at 1900 tonight. Order received to increase to 300 mg q 12 hr and give now.
[2024-06-27] MEDS: LABETALOL HCL 100 MG TABLET 300 MG PO (17:55)
--- NOTE | 2024-06-27 17:55 | PC.NURSE ---
Pan Garcia CNM in room discussing plan of care with patient. Pt verbalizes understanding.
[2024-06-27] MEDS: FAMOTIDINE 20 MG TABLET PO (19:00)
[2024-06-27] MEDS: ONDANSETRON HCL ODT 4 MG TABLET PO (19:01)
--- NOTE | 2024-06-29 07:36 | PM.OBTRLD ---
OB - Triage/Final Diagnosis Visit Information Date of evaluation: 06/27/24 Reason for evaluation: other ( preeclampsia) Comments/Additional reasons for admission: I have assessed the risk for this patient, Sue Rose, and determined that she would benefit from observation care. Evaluation Laboratory results: Laboratory Tests 06/26/24 06/26/24 06/27/24 13:58 20:12 15:03 WBC 8.0 9.8 7.7 RBC 3.70 L 3.97 L 4.12 L Hgb 9.9 L 10.6 L 10.8 L Hct 30.7 L 32.9 L 34.7 L MCV 83.0 82.9 84.2 MCH 26.8 26.7 26.2 MCHC 32.2 32.2 31.1 L RDW 14.6 H 14.6 H 14.6 H Plt Count 259 303 318 MPV 8.8 9.0 9.1 Immature Gran % (Auto) 0.4 0.5 0.4 Neut % (Auto) 68.3 74.0 H 79.7 H Lymph % (Auto) 22.1 18.1 L 14.3 L [place] % (Auto) 7.2 6.1 4.9 Eos % (Auto) 1.6 1.0 0.4 Baso % (Auto) 0.4 0.3 0.3 Lymph # (Auto) 1.76 1.76 1.10 [place] # (Auto) 0.6 0.6 0.4 Eos # (Auto) 0.1 0.1 0.0 Baso # (Auto) 0.0 0.0 0.0 Abs Immat Gran (auto) 0.03 0.05 H 0.03 Absolute Neuts (auto) 5.4 7.2 H 6.1 Absolute Nucleated RBC 0.000 0.000 0.000 Nucleated RBC % 0.0 0.0 0.0 Sodium 140 138 140 Potassium 3.1 L 3.1 L 3.6 Chloride 107 103 103 Carbon Dioxide 23 24 28 Anion Gap 10 11 9 BUN 12 D 9 5 L Creatinine 0.66 L 0.54 L 0.57 L Estim Creat Clear Calc Not Reportable 132 125 Estimated GFR > 60 > 60 > 60 Glucose 78 113 H 98 Uric Acid 4.4 4.3 3.9 Calcium 9.3 8.3 L 6.6 L Total Bilirubin 0.3 0.3 0.3 AST 39 H 38 H 37 H ALT 25 27 25 Alkaline Phosphatase 110 122 125 Total Protein 7.0 7.0 7.0 Albumin 3.8 4.0 4.0
== END 2024-06-27 21:25 | disposition home or self-care (01) ==
LOC: ANHOBOP 14:25 → ANHOBPP 14:25
PROVIDERS: Admitting Provider Obstetrics & Gynecology; PCP Advanced Practice Midwife; Visit Provider Obstetrics & Gynecology
DX: O14.95 Unspecified pre-eclampsia, complicating the puerperium (principal); O99.285 Endocrine, nutritional and metabolic diseases complicating the puerperium; E87.6 Hypokalemia
CPT/HCPCS: 36415; 80053; 84550; 85025; 96361; 96365; 96366; 96375; A9270; G0378; G0379; J3475; J7120